=== PATIENT | female | born 1965 | race Caucasian/White ===

== ENCOUNTER 2020-03-25 12:06 | Outpatient (CLI) | payer BC, SELFPAY ==
[2020-03-25 12:24] LABS: Add Urine Microscopic? YES; Appearance Urine Cloudy (Clear); Bilirubin Urine Negative (Negative); Blood Urine 2+ (Negative); Color Urine Yellow (Yellow); Glucose Urine UA Negative (Negative); Ketones Urine Negative (Negative); Leukocyte Esterase Ur 3+ (Negative); Nitrate Urine Negative (Negative); Protein Urine 1+ (Negative); Urobilinogen Urine 0.2 mg/dL (0.2-1.0); pH Urine 6.5 (5.0-8.0)
[2020-03-25 12:29] LABS: RBC Urine None seen /hpf (0-2); Squamous Epithelial Cell Urine Few /hpf (Few); WBC Urine >75 /hpf (0-3)
[2020-03-25 12:30] LABS: Bacteria Urine 1+ /hpf
== END 2020-03-25 12:07 | disposition home or self-care (01) ==
LOC: CHSLAB 12:11
PROVIDERS: PCP Family Medicine; Visit Provider Family Medicine
DX: N39.0 Urinary tract infection, site not specified (principal)
CPT/HCPCS: 81001; 87077; 87086; 87088; 87186

== ENCOUNTER 2020-07-22 12:10 | Outpatient (CLI) | payer BC, SELFPAY ==
[2020-07-22 14:33] LABS: Alanine Aminotransferase 26 U/L (14-59); Albumin Level 3.8 g/dL (3.4-5.0); Alkaline Phosphatase 147 U/L (46-116); Anion Gap 7 mmol/L (8-16); Aspartate Amino Transferase 19 U/L (15-37); Bilirubin,Total 0.4 mg/dL (0.00-1.00); Blood Urea Nitrogen 23 mg/dL (7-18); Carbon Dioxide 29 mmol/L (21-32); Chloride 104 mmol/L (98-108); Cholesterol 179 mg/dL (0-200); Estimated Glomerular Filt Rate 58; Glucose 77 mg/dL (70-99); HDL Direct 63 mg/dL (40-60); Iron 80 ug/dL (50-170); LDL Cholesterol Calculated 104 mg/dL (<130); Osmolality Calculated 292 mOsm/kg (285-295); Percent Iron Saturation 27 % (12-57); Sodium 140 mmol/L (136-145); Thyroid Stimulating Hormone 7.44 uIU/mL (0.36-3.74); Total Protein 7.7 g/dL (6.4-8.2); Triglycerides 58 mg/dL (0-150); Vitamin B12 994 pg/mL (193-986)
[2020-07-22 14:44] LABS: Folic Acid > 20.0 ng/mL (8.6->20)
== END 2020-07-22 12:11 | disposition home or self-care (01) ==
LOC: CHSLAB 12:12
PROVIDERS: PCP Family Medicine; Visit Provider Physician Assistant
DX: Z00.00 Encounter for general adult medical examination without abnormal findings (principal)
CPT/HCPCS: 36415; 80053; 80061; 82607; 82746; 83540; 83550; 84443

== ENCOUNTER 2021-01-04 12:19 | Outpatient (CLI) | payer BC, SELFPAY ==
[2021-01-04 13:24] LABS: Free T3 2.67 pg/mL (2.18-3.98); Free T4 Free Thyroxine 1.05 ng/dL (0.76-1.46); Thyroid Stimulating Hormone 4.28 uIU/mL (0.36-3.74)
== END 2021-01-04 12:20 | disposition home or self-care (01) ==
LOC: CHSLAB 12:21
PROVIDERS: Visit Provider Physician Assistant
DX: R79.89 Other specified abnormal findings of blood chemistry (principal)
CPT/HCPCS: 36415; 84439; 84443; 84481

== ENCOUNTER 2021-01-28 11:28 | Outpatient (CLI) | payer BC, SELFPAY | END 2021-01-28 11:29 | disposition home or self-care (01) | LOC: CHSCOVIDVC 11:28 | DX: Z23 Encounter for immunization (principal) | CPT/HCPCS: 0011A; 91301 ==

== ENCOUNTER 2021-02-25 10:07 | Outpatient (CLI) | payer BC, SELFPAY | END 2021-02-25 10:08 | disposition home or self-care (01) | LOC: CHSCOVIDVC 10:07 | DX: Z23 Encounter for immunization (principal) | CPT/HCPCS: 0012A; 91301 ==

== ENCOUNTER 2021-07-27 11:38 | Outpatient (CLI) | payer BC, SELFPAY ==
[2021-07-27 12:37] LABS: Alanine Aminotransferase 44 U/L (14-59); Albumin Level 3.7 g/dL (3.4-5.0); Alkaline Phosphatase 213 U/L (46-116); Anion Gap 11 mmol/L (8-16); Aspartate Amino Transferase 31 U/L (15-37); Bilirubin,Total 0.5 mg/dL (0.00-1.00); Blood Urea Nitrogen 22 mg/dL (7-18); Carbon Dioxide 28 mmol/L (21-32); Chloride 103 mmol/L (98-108); Cholesterol 201 mg/dL (0-200); Estimated Glomerular Filt Rate 56; Glucose 78 mg/dL (70-99); HDL Direct 69 mg/dL (40-60); LDL Cholesterol Calculated 120 mg/dL (<130); Osmolality Calculated 296 mOsm/kg (285-295); Sodium 142 mmol/L (136-145); Total Protein 7.7 g/dL (6.4-8.2); Triglycerides 60 mg/dL (0-150)
[2021-07-27 12:42] LABS: Thyroid Stimulating Hormone Reflex 5.82 u/IU/mL (0.36-3.74)
[2021-07-27 12:43] LABS: Free T4 Free Thyroxine Reflex 1.09 ng/dL (0.76-1.46)
== END 2021-07-27 11:39 | disposition home or self-care (01) ==
LOC: CHSLAB 11:40
PROVIDERS: PCP Family Medicine; Visit Provider Family Medicine
DX: Z00.00 Encounter for general adult medical examination without abnormal findings (principal); E78.2 Mixed hyperlipidemia; E03.9 Hypothyroidism, unspecified
CPT/HCPCS: 36415; 80053; 80061; 84439; 84443

== ENCOUNTER 2024-10-22 11:12 | Outpatient (CLI) | payer BC, SELFPAY ==
[2024-10-22 12:09] LABS: Influenza A QL RT-PCR Negative (Negative); Influenza B QL RT-PCR Negative (Negative); RSV RNA, RT-PCR Positive (Negative); SARS-CoV-2 RNA PCR Negative (Negative)
--- OUTSIDE RECORDS SUMMARY | 2024-10-23 04:29 | XMS_ITS | Clinical Summary ---
Author Organization [facility] Address [address] [address] Phone Care Team Providers Care Architectural Technician Name Role Phone Derrikc Freire DO Unavailable Frances Pa MD Primary Care Provi juan Social History Tobacco Use Types Packs/Day Years Used Date Smoking Tobacco: Never Assessed Comments Unknown Sex and Gender Information Value Date Recorded Sex Assigned at Not on file Legal Sex Female 10:59 PM CDT Gender Identity Not on file Sexual Orientation Not on file Plan of Treatment Health Maintenance Due Date Last Done Comments Hepatitis C Virus (HCV) Screening 1965 TdaP Immunization 1963 Pap Smear 1984 Cervical Cancer Screening (CCS) 1993 HPV/Cotest 1993 Cologuard 2013 Immunochemical Fecal Occult Blood 2013 Mammogram 2013 Pneumococcal Immunization (5 0+ years) (1 of 1 - PCV) 2013 Zoster Immunization (1 of 2) 2013 Influenza Immunization (#1) 2024 SARS-COV-2 Immunization ( - season) 2024 Colonoscopy 08/15/2025 08/15/2015 Colorectal Cancer Screening 08/15/2025 Respiratory Syncytial Virus (RSV) Immunization (Adult) (1 - 1-dose 75+ series) 2038 08/15/2015 Hepatitis B Immunization Aged Out No longer eligible based on patient's age to complete this topic Meningococcal Immunization (ACWY) Aged Out No longer eligible based on patient's age to complete this topic Pneumococcal Immunization Combined Aged Out No longer eligible based on patient's age to complete this topic Rotavirus Immunization Aged Out No lo nger eligible based on patient's age to complete this topic Procedures Procedure Name Priority Date/Time Associated Diagnosis Comments COLONOSCOPY Routine 08/15/2015 from Last 3 Months or Most Recently Relevant to Health Maintenance Results * COLONOSCOPY (08/15/2015) Mick Steele MD PROCEDURE/MINOR SURGICAL ORDYohan [place] Final Result from Last 3 Months or Most Recently Relevant to Health Maintenance Care Teams Architectural Technician Relationship Specialty Start Date End Date Frances Pa MD [address] [address] PCP - General Family Medicine 11/26/18 Derrick Freire DO Gastroenterology 08/15/15
--- OUTSIDE RECORDS SUMMARY | 2024-10-23 04:29 | XMS_ITS | Clinical Summary ---
Author Organization [facility] Address [address] [place] [address]. [place] [address] [place] [address] Care Team Providers Care Sales Representative Public Utilities Name Role Phone Unavailable Primary Care Provider Unavailabl e Encounters Date Type Department Care Team Description 10/13/2024 7:26 AM HOUSEKEEPING STAFF - 10/13/2024 11:59 PM HOUSEKEEPING STAFF Hospital Encounter [facility] [place] [address] Nuha Lopez, DPM Discharge Disposition: Home or Self Care (Routine Discharge) from Last 3 Months Social History Tobacco Use Types Packs/Day Years Used Date Smoking Tobacco: Never Assessed Comments Unknown Sex and Gender Information Value Date Recorded Sex Assigned at Not on file Legal Sex Female 7:26 AM HOUSEKEEPING STAFF Gender Identity Not on file Sexual Orientation Not on file Plan of Treatment Health Maintenance Due Date Last Done Comments Cervical Cancer Screening Pa p Smear (Age 30 to 64) Every 3 Years 1963 Colorectal Cancer Screening Colonoscopy (10 Years) 1963 Annual Physical 1966 Hepatitis C 1981 DTaP, Tdap and Td Vaccines ( 1 - Tdap) 1982 Cervical Cancer Screening Pa p with HPV Testing (Age 30 to 64) Every 5 Years 1993 Cervical Cancer Screening with HPV 1993 Mammogram Screening 2003 Zoster Vaccines (1 of 2) 2013 COVID-19 Vaccine ( - 2023-2 5 season) 2024 Influenza Adult (#1) 2024 RSV Immunization or 60+ Years (1 - 1-dose 75+ series) 2038 Meningococcal Vaccine Aged Out No gonzalo jackie eligible based on patient's age to complete this topic Pneumococcal Vaccine: Pediat rics (0 to 5 Years) and At-Risk Patients (6 to 64 Years) Aged Out No longer eligible b ased on patient's age to complete this topic RSV Immunizations Under 20 Months Aged Out No longer eligible based on patient's age to complete this topic Procedures Procedure Name Priority Date/Time Associated Diagnosis Comments PATHOLOGY Routine 10/13/2024 12:00 AM HOUSEKEEPING STAFF from Last 3 Months Results * Pathology (10/13/2024 12:00 AM HOUSEKEEPING STAFF) PATHOLOGY [facility] ? Department of Laboratory Medicine ?[address] ?[place] [address] ? , extension [phone] ? Pathology Report ? Surgical Pathology Report Name: CHELSI SOTO ?Specimen #: [id number] Age: 8 1965 (Age: 59) ?Location: [facility] Sex: F ?Procedure Date: 10/13/2024 Hospital #: [id number] ?Date Received: 10/14/2024 Date Reported: 10/15/2024 Provider: NUHA LOPEZ DPM Source: left third toe cyst Clinical History: Cyst third left toe. FINAL DIAGNOSIS: Left third toe cyst, excision: ? -Fibroadipose and fibrovascular tissue with reactive changes. ? -No evidence of malignancy. Gross Description: Received in formalin, labeled with a patient labeled and as third left toe cyst is a 0.5 x 0.3 x 0.3 cm piece of disrupted white-zayas tissue. ??The specimen is inked black and bisected to reveal a pink-white cut surface. ??Grossly a definite cystic structure is not identified. ??The specimen is entirely submitted in cassette 1. Gross examination (when applicable), interpretation, and sign out were performed at [facility], [address] [place] [address]. ?? Electronically Signed Out ? KALA VILLAFANA MD [facility] 10/13/2024 10/14/2024 11: 49 AM HOUSEKEEPING STAFF Comment:left third toe cyst us Nuha Lopez DPM PATHOLOGY/CYTOLOGY ORDERABLE S Final Result [facility] [address] [place] [address], [id number] from Last 3 Months
--- OUTSIDE RECORDS SUMMARY | 2024-10-23 04:29 | XMS_ITS | Encounter Summary ---
Author Organization [facility] Address [address] [place] [address] Care Team Providers Care Sane Nurse Name Role Phone Brianda Acuna MD Primary Care Provider [phone] Encounter Details Date Type Department Care Team (Latest Contact Info) Description 01/20/2007 Outpatient Historical [facility] Jose Francois MD [address] [facility] [address] [place] [address] Other Screening Mammogram (Primary Dx) Social History Tobacco Use Types Packs/Day Years Used Date Smoking Tobacco: Never Assessed Comments Unknown Sex and Gender Information Value Date Recorded Sex Assigned at Not on file Legal Sex Female 3:28 AM HYDRATOR Gender Identity Not on file Sexual Orientation Not on file documented as of this encounter Plan of Treatment Upcoming Encounters Date Type Department Care Team (Late st Contact Info) Description 11/02/2024 1:30 PM HYDRATOR Appointment [facility] [place] A [address] [place] [address] [place] [address] [place] [phone] documented as of this encounter Visit Diagnoses Diagnosis Other screening mammogram- Primary documented in this encounter Care Teams Sane Nurse Relationship Specialty Start Date End Date Brianda Acuna MD [address] [place] [phone] PCP - General Family Practice 06/26/21 documented as of this encounter
--- OUTSIDE RECORDS SUMMARY | 2024-10-23 04:29 | XMS_ITS | Encounter Summary ---
Author Organization [facility] Address [address] [place] [address] Care Team Providers Care Barber Stylist Name Role Phone Brianda Acuna MD Primary Care Provider [phone] Encounter Details Date Type Department Care Team (Late Contact Info) Description 10/22/2024 External Device Data [facility] ABSTRACTION Provider, Abstract NO ADDRESS ON FILE Social History Tobacco Use Types Packs/Day Years Used Date Smoking Tobacco: Never Assessed Comments Unknown Sex and Gender Information Value Date Recorded Sex Assigned at Not on file Legal Sex Female 3:28 AM HAND POTTER Gender Identity Not on file Sexual Orientation Not on file Occupation Industry Job Start Date Job End Date Not on file Not on file Not on file Not on file Not on file Not on file Not on file Not on file documented as of this encounter Plan of Treatment Upcoming Encounters Date Type Department Care Team (Late Contact Info) Description 11/02/2024 1:30 PM HAND POTTER Appointment [facility] [place] A [address] [place] [address] Brianda Acuna MD [address] [place] [address] documented as of this encounter Visit Diagnoses Not on filedocumented in this encounter Care Teams Barber Stylist Relationship Specialty Start Date End Date Brianda Acuna MD [address] [place] [address] PCP - General Family Practice 06/26/21 documented as of this encounter
--- OUTSIDE RECORDS SUMMARY | 2024-10-23 04:29 | XMS_ITS | Clinical Summary ---
Author Organization [facility] Address [address] [place] [address] Phone Care Team Providers Care Kayak Maker Name Role Phone Brianda Acuna MD Primary Care Provider [phone] Encounters Date Type Department Care Team Description 10/22/2024 External Device Data ST[facility] ABSTRACTION Provider, Abstract 10/06/2024 External Device Data [facility] ABSTRACTION Provider, Abstract 07/29/2024 External Device Data [facility] ABSTRACTION Provider, Abstract from Last 3 Months Family History Medical History Relation Name Comments Ovarian Cancer Other PGM Breast Cancer Neg Hx Cancer Neg Hx Relation Name Status Comments Other PGM Social History Tobacco Use Types Packs/Day Years Used Date Smoking Tobacco: Never Assessed Comments Unknown Sex and Gender Information Value Date Recorded Sex Assigned at Not on file Legal Sex Female 3:28 AM EKG TECH Gender Identity Not on file Sexual Orientation Not on file Occupation Industry Job Start Date Job End Date Not on file Not on file Not on file Not on file Not on file Not on file Not on file Not on file Plan of Treatment Upcoming Encounters Date Type Department Care Team (Late st Contact Info) Description 11/02/2024 1:30 PM EKG TECH Appointment [facility] A [address] [place] [address] Brianda Acuna MD [address] [place] [address] Health Maintenance Due Date Last Done Comments DTAP/TDAP/TD VACCINES (1 - Tdap) 1982 COLORECTAL SCREENING 2008 Colorectal Cancer Screening 2008 FIT-DNA Q 3 years 2008 FIT/FOBT Q 1 year 2008 Flex Sig/CT Colonography Q 5 years 2008 ZOSTER VACCINE (1 of 2) 2013 CERVICAL CANCER SCREENING 09/13/20172013, 09/10/2013, 07/14/2012, Additional history exists INFLUENZA VACCINE (#1) 2024 BREAST CANCER SCREENING 10/07/2024 10/07/19 24, 08/10/2022, 07/21/2021, Additional history exists RSV VACCINE (60+ or ) (1 - 1-dose 75+ series) 2038 PNEUMOCOCCAL VACCINE 0-64 YEARS Aged Out No longer eligible based on patient's age to complete this topic Procedures Procedure Name Priority Date/Time Associated Diagnosis Comments MAMMO 3D CECE SCREEN BILAT W OR WO CAD Routine 10/07/2023 1:57 PM EKG TECH Visit for screening mammogram CERV/VAG CYTO SCREEN PAP RLFX HPV Routine 09/13/2014 9:40 PM EKG TECH Screening for malignant neoplasm of the cervix from Last 3 Months or Most Recently Relevant to Health Maintenance Results * MAMMO SCRN BILAT 3D CECE W OR WO CAD (10/07/2023 1:57 PM EKG TECH) Anatomical Region Laterality Modality Breast Bilateral Mammography 10/07/2023 1:58 PM EKG TECH Impressions 10/07/2023 4:13 PM EKG TECH IMPRESSION: No mammographic evidence of malignancy. ?? OVERALL FINAL ASSESSMENT: BI-RADS Category 1: Negative mammogram. RECOMMENDATION: Bilateral screening mammogram in one year. DICTATION LOCATION: [facility] 10/07/2023 4:13 PM EKG TECH BILATERAL SCREENING DIGITAL MAMMOGRAM WITH 3D TOMOSYNTHESIS AND CAD DATE: 10/07/2023 1:57 PM COMPARISON: Multiple prior mammograms, dating back to 02/04/2017 and most recently 08/10/2022. HISTORY: Screening mammogram. ?? TECHNIQUE: Low-dose full-field digital breast tomosynthesis examination was performed with 2D and 3D acquisitions. Examination is read in conjunction with computer aided detection. BREAST COMPOSITION: The breasts are heterogeneously dense, which may obscure small masses. FINDINGS: There is no suspicious mass, clustered microcalcification, or architectural distortion in either breast on 2D or 3D images. There has been no change in the mammographic appearance compared with the prior study. Procedure Note Giovany العراقي MD - 10/07/2023 BILATERAL SCREENING DIGITAL MAMMOGRAM WITH 3D TOMOSYNTHESIS AND CAD DATE: 10/07/2023 1:57 PM COMPARISON: Multiple prior mammograms, dating back to 02/04/2017 and most recently 08/10/2022. HISTORY: Screening mammogram. TECHNIQUE: Low-dose full-field digital breast tomosynthesis examination was performed with 2D and 3D acquisitions. Examination is read in conjunction with computer aided detection. BREAST COMPOSITION: The breasts are heterogeneously dense, which may obscure small masses. FINDINGS: There is no suspicious mass, clustered microcalcification, or architectural distortion in either breast on 2D or 3D images. There has been no change in the mammographic appearance compared with the prior study. IMPRESSION: No mammographic evidence of malignancy. OVERALL FINAL ASSESSMENT: BI-RADS Category 1: Negative mammogram. RECOMMENDATION: Bilateral screening mammogram in one year. DICTATION LOCATION: [facility] Brianda Acuna MD MAMMO ORDERABLES Final Result * CERV/VAG CYTOPATH, THIN PREP IMAGR RFLX HPV (CP) (09/13/2014 9:40 PM EKG TECH) PAP INTERP Negative for intraepithelial lesion or malignancy. [facility] [employer] [facility] Comment: Performed by [employer], [facility] [place] [address] Assistant Professor Of English Pap Comment This Pap test has been evaluated with computer assisted technology. [facility] [employer] [facility] ADEQUACY: Satisfactory for evaluation. Endocervical/trans formation zone component present. Age and/or menstrual status not provided [facility] [employer] [facility] CLINICAL INFORMATION Information not provided [facility] [employer] [facility] SOURCE Cervix, Endocervix M [facility] [employer] [facility] PREV PAP: INFORMATION NOT PROVIDED [facility] [employer] [facility] CYTOTECHNOLOGI ST: YQ, CT(ASCP)) [facility] - [facility] LAST MENSTRUAL PERIOD INFORMATION NOT PROVIDED [facility] - [facility] PREV BX: INFORMATION NOT PROVIDED [facility] - [facility] Endocervical 09/13/2014 9:40 PM EKG TECH 09/13/2014 11:23 PM EKG TECH Comment:ENDOCERVICAL Narrative [facility] - [facility] - 09/17/2014 2:28 PM EKG TECH ce Jose Francois MD PATHOLOGY/CYTOLOGY ORDERABLES Final Result [facility]ORATORY SERVICES - [facility] CLIA# [id number] [place] [id number] from Last 3 Months or Most Recently Relevant to Health Maintenance Insurance [facility] BLUE ACCESS/TRUE BLUE PPO Care Teams Kayak Maker Relationship Specialty Start Date End Date Brianda Acuna MD [address] [place] [phone] PCP - General Family Practice 06/26/21
== END 2024-10-22 11:13 | disposition home or self-care (01) ==
LOC: ANHLAB 11:13
PROVIDERS: PCP Family Medicine; Visit Provider Family Medicine
DX: J06.9 Acute upper respiratory infection, unspecified (principal); J02.9 Acute pharyngitis, unspecified; Z20.822 Contact with and (suspected) exposure to COVID-19
CPT/HCPCS: 87081; 87637

== ENCOUNTER 2025-03-08 13:47 | Outpatient (CLI) | payer BC, SELFPAY ==
--- NOTE | ~2025-03-08 | US_ITS ---
Thyroid ultrasound. Clinical History: Multinodular goiter Findings: Real-time sonography of the thyroid gland was performed. The right lobe measures 3.1 x 1.3 x 1.2 cm. The left lobe measures 3.5 x 1.8 x 1.4 cm. The isthmus is 1.5 mm in AP diameter. There is a 7 mm spongiform nodule in the right mid to upper pole. There is an 8 mm mixed solid and cy stic nodule at the left midpole. Impression: Subcentimeter benign-appearing thyroid nodules, as above, with relatively small thyroid gland overall .. Reviewed, dictated and finalized at location . Impression: Subcentimeter benign-appearing thyroid nodules, as above, with relatively small thyroid gland overall..
== END 2025-03-08 13:48 | disposition home or self-care (01) ==
LOC: GOSHIMG 13:47
PROVIDERS: PCP Internal Medicine; Visit Provider Internal Medicine
DX: E03.9 Hypothyroidism, unspecified (principal); E04.2 Nontoxic multinodular goiter; M81.0 Age-related osteoporosis without current pathological fracture; R79.89 Other specified abnormal findings of blood chemistry; Z68.23 Body mass index [BMI] 23.0-23.9, adult; Z13.820 Encounter for screening for osteoporosis
CPT/HCPCS: 76536

== ENCOUNTER 2025-07-20 14:45 | Outpatient (CLI) | payer BC, SELFPAY ==
--- NOTE | ~2025-07-20 | MR_ITS ---
EXAMINATION: MR foot LT wo/w con DATE: 07/20/2025 15:40 INDICATION: Left foot neuroma TECHNIQUE: Magnetic resonance imaging (MRI) of the left fore/mid foot was performed without and with 15 mL Multihance intravenous contrast. Sequences included sagittal T1-weighted FSE, sagittal fluid sensitive FSE STIR, coronal PD-weighted FS FSE, coronal T1-weighted FSE, axial T2-weighted FS FSE, axial T1- weighted FSE, axial T1-weighted FS FSE and postcontrast axial, sagittal and coronal T1-weighted FS FSE. A marker is placed concern plantar to the head of the second metatarsal. COMPARISON: None FINDINGS: Bone alignment is normal. No fracture or pathologic marrow replacing process. Moderate osteoarthritis with underlying subarticular edema-like and cystlike changes at the evaluation of the navicula with the medial and mid cuneiforms. Additional moderate osteoarthritis at the articulation between the lateral cuneiform and the medial side of the base of the fourth metatarsal with prominent subarticular edema-like signal change at the former and mild subarticular cystlike change at the latter. Additional mild polyarticular osteoarthritis at the tarsal metatarsal joints, the first metatarsophalangeal joint and several interphalangeal joints.-Like degenerative cystic changes at the bipartite first metatarsal tibial sesamoid. Lisfranc ligament complex and the collateral ligament complex at the metatarsophalangeal and interphalangeal joints are normal. Visualized portions of the flexor and extensor tendons are normal. 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 IMPRESSION: 1. Marked is normal/perineural fibrosis at the third intermetatarsal space between the heads of the third and fourth metatarsals. 2. 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 Reviewed, dictated and finalized at location A. IMPRESSION: 1. Marked is normal/perineural fibrosis at the third intermetatarsal space betw een the heads of the third and fourth metatarsals. 2. 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
== END 2025-07-20 14:46 | disposition home or self-care (01) ==
PROVIDERS: PCP Student in an Organized Health Care Education/Training Program; Visit Provider Podiatrist Foot & Ankle Surgery
DX: G57.62 Lesion of plantar nerve, left lower limb (principal)
CPT/HCPCS: 73720; A9577